=== PATIENT | female | born 1945 | race Caucasian/White ===

== ENCOUNTER → 2019-03-13 | Outpatient (CLI) | payer MEDICARE, BC ==
--- NOTE | 2019-03-13 12:50 | CT ---
EXAMINATION TYPE: CT brain wo con DATE OF EXAM: 03/13/2019 HISTORY: Dizziness, giddiness, near syncopal episode CT DLP: 963.6 mGycm. Automated Exposure Control for Dose Reduction was Utilized. TECHNIQUE: CT scan of the head is performed without contrast. COMPARISON: None. FINDINGS: There is no acute intracranial hemorrhage or midline shift identified. There is diffuse v entricular and sulcal prominence consistent with diffuse age-related cerebral atrophy. There is low- attenuation in the periventricular white matter consistent with chronic small vessel ischemic change. The globes are intact and the visualized sinuses are clear. IMPRESSION: No acute intracranial hemorrhage or midline shift. There is mild diffuse age-related ce rebral atrophy and chronic small vessel ischemic change noted.
== END | disposition home or self-care (01) ==
LOC: RADCTMAIN 12:18
PROVIDERS: ATTEND Physician Assistant Medical
DX: G31.1 Senile degeneration of brain, not elsewhere classified (principal); I67.82 Cerebral ischemia
CPT/HCPCS: 70450

== ENCOUNTER → 2019-12-06 | Outpatient (CLI) | payer MEDICARE, BC ==
--- NOTE | 2019-12-06 12:06 | US ---
EXAMINATION TYPE: US abdomen complete DATE OF EXAM: 12/06/2019 COMPARISON: NONE CLINICAL HISTORY: Z84.89 Family history of other specified condition. EXAM MEASUREMENTS: Liver Length: 16.5 cm Gallbladder Wall: 0.1 cm CBD: 0.3 cm Spleen: 6.4 cm Right Kidney: 9.4 x 5.3 x 4.7 cm Left Kidney: 9.7 x 5.2 x 4.0 cm Abdominal Aorta: Proximal: 1.7cm Mid: 1.3cm Distal: 1.7 Bifurcation: Left: 1.0cm Right: 1.0cm Morbidly obese patient, technically difficult study. Pancreas: Obscured by bowel gas Liver: increased attenuation, decreased visualization of vessels, suggestive of fatty infiltrate, li mited visualization Gallbladder: wnl Evidence for sonographic Trent's sign: no CBD: wnl Spleen: limited visualization Right Kidney: Inferior pole obscured by bowel gas, portions visualized wnl Left Kidney: Inferior pole obscured by bowel gas, portions visualized wnl Upper IVC: not well visualized Abd Aorta: proximal portions obscure otherwise wnl There is no ascites. Kidneys show normal cortical medullary differentiation. IMPRESSION: Exam is limited. Findings suggest hepatic steatosis or hepatocellular disease.
== END | disposition home or self-care (01) ==
LOC: RADUSWWP 07:27
PROVIDERS: ATTEND Family Medicine
DX: R10.811 Right upper quadrant abdominal tenderness (principal); Z84.89 Family history of other specified conditions
CPT/HCPCS: 76700

== ENCOUNTER → 2023-05-11 | Outpatient (CLI) | payer MEDICARE, BC ==
--- NOTE | 2023-05-11 14:36 | XR ---
EXAMINATION TYPE: XR chest 2V DATE OF EXAM: 05/11/2023 COMPARISON: NONE TECHNIQUE: PA and lateral views submitted. HISTORY: Cough FINDINGS: The lungs are clear and there is no pneumothorax, pleural effusion, or focal pneumonia. Heart size normal and no overt failure. Osseous structures demonstrate hypertrophic and degenerative changes of the spine. Elevated right hemidiaphragm with limited inspiration. IMPRESSION: 1. No acute process.
== END | disposition home or self-care (01) ==
LOC: RADXRYALE 13:54
PROVIDERS: ATTEND Physician Assistant
DX: R05.9 Cough, unspecified (principal); R06.02 Shortness of breath
CPT/HCPCS: 71046